=== PATIENT | male | born 1995 | race African-American/Black ===

== ENCOUNTER 2021-09-11 15:52 | Emergency (ER) | payer SELFPAY ==
[2021-09-11] MEDS ORDERED: Dexamethasone 10 MG/ML VIAL ONE (17:51)
== END 2021-09-11 18:02 | disposition home or self-care (01) ==
LOC: CSHERS 15:52
DX: B34.9 Viral infection, unspecified (principal); Z20.822 Contact with and (suspected) exposure to COVID-19
CPT/HCPCS: 96372; 99283; J1100; U0003; U0005

== ENCOUNTER 2022-02-05 20:34 | Emergency (ER) | payer SELFPAY | END 2022-02-05 21:17 | disposition left against medical advice (07) | LOC: CSHERS 20:34 | DX: Z53.21 Procedure and treatment not carried out due to patient leaving prior to being seen by health care provider (principal) ==

== ENCOUNTER 2022-05-07 22:02 | Emergency (ER) | payer SELFPAY | END 2022-05-07 23:36 | disposition home or self-care (01) | LOC: CSHERS 22:02 | DX: M79.674 Pain in right toe(s) (principal) ==